=== PATIENT | male | born 1950 | race African-American/Black ===

== ENCOUNTER 2024-02-08 16:51 | Emergency (ER) | payer MEDICARE ==
[~2024-02-08] VITALS: Ht 175.3 cm; Wt 78.0 kg
[2024-02-08 16:53] VITALS: BP_SYST 160; PULSE 80; RESP 18; TEMP 98.3; O2SAT 94
[2024-02-08] MEDS: NACL 0.9% 1,000 ML IV ONE ×2 (17:15→18:35)
[2024-02-08] MEDS: INSULIN REGULAR, HUMAN 10 UNITS/0.1 ML, 3 ML VIAL IVP ONE (17:16)
[2024-02-08] MEDS: metFORMIN HCL 500 MG TABLET PO ONE (17:16)
[2024-02-08] MEDS: KETOROLAC TROMETHAMINE 30 MG VIAL IVP ONE (17:16)
[2024-02-08 17:34] LABS: BASOPHILS # (AUTO) 0.1 K/uL (0.0-0.2); BASOPHILS % (AUTO) 0.4 % (0.0-2.0); EOSINOPHILS # (AUTO) 0.2 K/uL (0.0-0.4); EOSINOPHILS % (AUTO) 0.9 % (0.0-4.0); HEMOGLOBIN 12.1 g/dL (14.0-18.0); LYMPHOCYTES # (AUTO) 2.7 K/uL (1.0-5.5); LYMPHOCYTES % (AUTO) 15.9 % (20.5-51.5); MEAN CORPUSCULAR HEMOGLOBIN 28 pg (27-31); MEAN CORPUSCULAR HGB CONC 33 % (32-36); MEAN CORPUSCULAR VOLUME 84 fL (79.0-98.0); MONOCYTES # (AUTO) 1.1 K/uL (0.0-1.0); MONOCYTES % (AUTO) 6.2 % (1.7-9.3); NEUTROPHILS # (AUTO) 13.2 K/uL (1.8-7.7); NEUTROPHILS % (AUTO) 76.6 % (40.0-70.0); PLATELET COUNT (AUTO) 310 K/uL (130-430); RED CELL DISTRIBUTION WIDTH 15.7 % (9.0-15.0); WHITE BLOOD COUNT (AUTO) 17.2 K/uL (4.8-10.8)
[2024-02-08 17:45] LABS: ANION GAP 9 (5-15); CALCIUM 9.6 mg/dL (8.4-11.0); CARBON DIOXIDE 26 mmol/L (23-29); CHLORIDE 97 mmol/L (98-107); CREATININE 1.81 mg/dL (0.55-1.30); POTASSIUM 4.3 mmol/L (3.5-5.1); SODIUM SERUM 132 mmol/L (136-145); UREA NITROGEN, BLOOD 26 mg/dL (8-21); URIC ACID 10.7 mg/dL (2.4-7.0)
[2024-02-08 17:49] LABS: GLUCOSE 416 mg/dL (74-106)
[2024-02-08 20:23] LABS: ANION GAP 10 (5-15); CALCIUM 9.4 mg/dL (8.4-11.0); CARBON DIOXIDE 24 mmol/L (23-29); CHLORIDE 100 mmol/L (98-107); CREATININE 1.77 mg/dL (0.55-1.30); GLUCOSE 350 mg/dL (74-106); POTASSIUM 4.1 mmol/L (3.5-5.1); SODIUM SERUM 134 mmol/L (136-145); UREA NITROGEN, BLOOD 26 mg/dL (8-21)
[2024-02-08] MEDS ORDERED: DICL20GE TP (22:11)
[2024-02-08] MEDS ORDERED: METF-518 PO (22:11)
[2024-02-08 22:38] VITALS: BP_SYST 134; PULSE 78; RESP 17; TEMP 98.3; O2SAT 97
== END 2024-02-09 00:26 | disposition home or self-care (01) ==
LOC: SED 16:51
DX: R73.9 Hyperglycemia, unspecified (principal); M10.9 Gout, unspecified; Z91.148 Patient's other noncompliance with medication regimen for other reason
CPT/HCPCS: 99285; 96374; 96361; 71045; 96375; 80048; 83880; 84550; 85025; 84484; 36415; 93005; 82948; J1815; J1885; J7030